=== PATIENT | female | born 1975 | race Caucasian/White ===

== ENCOUNTER 2019-08-23 12:36 | Outpatient (CLI) | payer OTHER, SELFPAY ==
--- NOTE | ~2019-08-23 | MR_ITS ---
EXAMINATION: MR brain IAC wo/w con EXAM DATE: 08/23/2019 14:12 INDICATION: Blurred vision, headache. Pulsatile tinnitus. TECHNIQUE: Multi-sequential, multiplanar MR images of the brain, brainstem, internal auditory canals were obtained without contrast. Whole brain sagittal T1, axial diffusion, gradient echo (T2*), T1, T 2, FLAIR sequences obtained. High resolution coronal 3-D FIESTA, coronal T1 FSE, axial T1 FSPGR of t he internal auditory canals. Patient was then injected with 20 cc Multihance contrast intravenously. Postcontrast axial and coronal T1 weighted whole brain, axial and coronal high resolution T1 IAC seq uences obtained. There is no prior study for comparison. FINDINGS: No evidence of mastoid or middle ear opacification. The 7th/8th cranial nerve complexes a re symmetric, normal in course and caliber. No cerebellopontine angle masses. Posterior fossa unrem arkable. Internal carotid arteries have a normal course. There are small mucous retention cysts in the maxillary sinuses. There are no areas of restricted dif fusion to suggest acute infarction. There is no acute hemorrhage seen on the T2*, a hemosiderin sens itive sequence. No intraparenchymal brain mass. The ventricles are normal in size. There are no ext ra-axial collections. Flow voids are seen in the cerebral arteries on the T2-weighted sequences cons istent with their expected patency. The orbits are unremarkable. Soft tissue is unremarkable. The re are no areas of abnormal enhancement on the postcontrast images. IMPRESSION: 1. Unremarkable brain/IAC examination. Reviewed, dictated and finalized at location A.
[2019-08-23 13:20] LABS: Estimated Glomerular Filt Rate > 60
== END 2019-08-23 12:37 | disposition home or self-care (01) ==
PROVIDERS: PCP Physician Assistant; Visit Provider Otolaryngology
DX: H93.A3 Pulsatile tinnitus, bilateral (principal); H69.82 Other specified disorders of Eustachian tube, left ear
CPT/HCPCS: 36415; 70553; A9577

== ENCOUNTER 2021-01-01 10:04 | Outpatient (CLI) | payer OTHER, SELFPAY ==
--- NOTE | 2021-01-01 | ECG_ITS ---
Measurements Intervals [place] Rate: 80 P: 22 WI: 132 QRS: 43 QRSD: 88 T: 34 QT: 351 QTc: 405 Interpretive Statements SINUS RHYTHM NORMAL ECG Electronically Signed On 01-01-2021 10:55:19 CDT by Neal Winn D.O.
== END 2021-01-01 10:05 | disposition home or self-care (01) ==
PROVIDERS: PCP Family Medicine; Visit Provider Obstetrics & Gynecology
DX: R07.89 Other chest pain (principal)
CPT/HCPCS: 93005

== ENCOUNTER 2021-01-07 15:14 | Outpatient (CLI) | payer OTHER, SELFPAY ==
--- NOTE | ~2021-01-07 | MM_ITS ---
EXAMINATION: MM screening concepcion BI w duncan HISTORY: Screening mammogram TECHNIQUE: Craniocaudal and mediolateral oblique 3-D tomosynthesis images were obtained and synthetic 2-D images were generated. CAD analysis was submitted and interpreted. COMPARISON: No prior mammogram is available for comparison at this institution. BREAST PARENCHYMAL COMPOSITION: There are scattered areas of fibroglandular density. FINDINGS: There is no evidence of suspicious mass, calcification, or architectural distortion to sugg est malignancy in either breast. IMPRESSION: 1. No mammographic evidence of malignancy. 2. Recommend routine screening mammography in one year. BI-RADS Category 1: Negative Reviewed, dictated and finalized at location A.
== END 2021-01-07 15:15 | disposition home or self-care (01) ==
LOC: ANHIMG 15:16
PROVIDERS: PCP Family Medicine; Visit Provider Obstetrics & Gynecology
DX: Z12.31 Encounter for screening mammogram for malignant neoplasm of breast (principal)
CPT/HCPCS: 77063; 77067

== ENCOUNTER 2021-04-02 16:06 | Outpatient (CLI) | payer OTHER, SELFPAY ==
--- NOTE | ~2021-04-02 | XR_ITS ---
XR abdomen/kub 1V 04/02/2021 16:30 INDICATION: Renal stone TECHNIQUE: KUB COMPARISON: None FINDINGS: Bowel gas pattern is normal. There is no evidence of free air, mass, organomegaly, ascites or obstruction. No abnormal calculi are seen. The bones appear intact. IMPRESSION: 1: No acute abdominal abnormality identified. Reviewed, dictated and finalized at location A. ANALYST
== END 2021-04-02 16:07 | disposition home or self-care (01) ==
LOC: ANHIMG 16:13
PROVIDERS: PCP Family Medicine; Visit Provider Urology
DX: N20.0 Calculus of kidney (principal)
CPT/HCPCS: 74018

== ENCOUNTER 2022-03-24 15:48 | Emergency (ER) | payer OTHER, SELFPAY ==
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
[2022-03-24 15:53] VITALS: BP 141/80; PULSE 93; RESP 18; TEMP 36.8; O2SAT 100
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
--- NOTE | 2022-03-24 16:49 | PC.NURSE ---
Patient in radiology
[2022-03-24] MEDS: TETANUS,DIPHTHERIA,AC PERTUSSIS ADULT (0.5 ML) BOOSTRIX IM (17:02)
[2022-03-24] MEDS: HYDROcodone/acetaminophen (*CRX) 5-325 MG TABLET 1 TAB PO (17:02)
[2022-03-24 17:32] VITALS: TEMP 36.8
[2022-03-24 18:35] VITALS: BP 143/82; PULSE 82; RESP 18; O2SAT 98
== END 2022-03-24 18:37 | disposition home or self-care (01) ==
LOC: ANHED 18:14
PROVIDERS: Emergency Provider Emergency Medicine; PCP Family Medicine
DX: S02.2XXA Fracture of nasal bones, initial encounter for closed fracture (principal); S01.112A Laceration without foreign body of left eyelid and periocular area, initial encounter; Z23 Encounter for immunization; I10 Essential (primary) hypertension; E78.2 Mixed hyperlipidemia; E66.01 Morbid (severe) obesity due to excess calories; Z68.41 Body mass index [BMI] 40.0-44.9, adult; F41.9 Anxiety disorder, unspecified; F32.A Depression, unspecified; Z87.442 Personal history of urinary calculi; V49.40XA Driver injured in collision with unspecified motor vehicles in traffic accident, initial encounter
CPT/HCPCS: 12011; 70450; 70486; 71045; 72125; 90471; 90715; 99284; A9270

== ENCOUNTER 2022-04-06 13:45 | Outpatient (CLI) | payer OTHER, SELFPAY ==
--- NOTE | ~2022-04-06 | XR_ITS ---
AP and lateral views of the left tibia/fibula Clinical History: Injury Findings: No acute fracture or dislocation is seen. Osseous alignment is anatomic. Joint spaces are p reserved without significant erosive or degenerative change. Soft tissues are unremarkable. Impression: Unremarkable left tib-fib radiographs. Reviewed, dictated and finalized at [facility]. TENANCE TRAINER Impression: Unremarkable left tib-fib radiographs.
== END 2022-04-06 13:46 | disposition home or self-care (01) ==
LOC: ANHIMG 13:49
PROVIDERS: PCP Emergency Medicine; Visit Provider Emergency Medicine
DX: M79.662 Pain in left lower leg (principal)
CPT/HCPCS: 73590

== ENCOUNTER 2022-04-27 07:57 | Outpatient (CLI) | payer OTHER, SELFPAY ==
[2022-04-27 08:15] LABS: Basophils Absolute Auto 0.1 K/mm3 (0.0-0.1); Basophils Percent Auto 0.6 % (0.2-1.2); Eosinophils Absolute Auto 0.2 K/mm3 (0-0.3); Hematocrit 43.7 % (37.0-47.0); Hemoglobin 14.3 g/dL (12.0-15.0); Immature Granulocyte Absolute 0.02 K/mm3 (0.00-0.031); Immature Granulocyte Percent A 0.2 % (0-0.5); Lymphocytes Absolute Auto 2.97 K/mm3 (0.9-3.2); Lymphocytes Percent Auto 34.5 % (18.3-44.2); Mean Corpuscular HGB Conc 32.7 g/dl (32-36); Mean Corpuscular Hemoglobin 29.9 pg (26-34); Mean Corpuscular Volume 91.4 fl (80-100); Mean Platelet Volume 9.2 fl (7.4-10.4); Monocytes Absolute Auto 0.6 K/mm3 (0.1-0.6); Monocytes Percent Auto 6.4 % (2.6-8.5); Neutrophils Absolute Auto 4.8 K/mm3 (1.3-6.7); Neutrophils Percent Auto 56.3 % (45.5-73.1); Platelet Count Result 281 k/mm3 (150-375); Red Blood Count 4.78 M/mm3 (4.2-5.4); Red Cell Distribution Width 13.6 % (11.5-14.5); White Blood Count 8.6 K/mm3 (4.5-10.0)
[2022-04-27 08:26] LABS: Alanine Aminotransferase 37 U/L (6-35); Albumin Level 4.2 g/dL (3.5-5.1); Alkaline Phosphatase 42 U/L (38-126); Anion Gap 4 mmol/L (8-16); Aspartate Amino Transferase 20 U/L (14-36); Bilirubin,Total 0.3 mg/dL (0.2-1.3); Blood Urea Nitrogen 14 mg/dL (7-17); Calcium 8.3 mg/dL (8.4-10.2); Carbon Dioxide 30 mmol/L (22-30); Chloride 101 mmol/L (98-107); Cholesterol 207 mg/dL (0-200); Estimated Glomerular Filt Rate > 60; Glucose 105 mg/dL (65-110); HDL Direct 46 mg/dL; Potassium 4.1 mmol/L (3.4-5.0); Sodium 135 mmol/L (137-145); Triglycerides 116 mg/dL (<150)
[2022-04-27 08:37] LABS: LDL Cholesterol Direct 120 mg/dL
[2022-04-27 08:40] LABS: Hemoglobin A1C 5.4 % (<5.7)
== END 2022-04-27 07:58 | disposition home or self-care (01) ==
LOC: ANHLAB 07:59
PROVIDERS: PCP Emergency Medicine; Visit Provider Emergency Medicine
DX: Z00.00 Encounter for general adult medical examination without abnormal findings (principal); E66.01 Morbid (severe) obesity due to excess calories; Z68.41 Body mass index [BMI] 40.0-44.9, adult; Z13.220 Encounter for screening for lipoid disorders; Z13.1 Encounter for screening for diabetes mellitus
CPT/HCPCS: 36415; 80053; 80061; 83036; 85025

== ENCOUNTER 2024-07-10 00:39 | Day surgery (SDC) | payer OTHER, SELFPAY ==
[2024-07-06 14:55] VITALS: BMI 38.3
--- OUTSIDE RECORDS SUMMARY | 2024-07-10 00:45 | XMS_ITS | Referral Summary ---
Author Organization [facility] [place] [address] Address [address] [place] [address] Care Team Providers Care Supply Chain Project Manager Name Role Phone Boyd El MD Primary Care Provider [phone] Allergies Active Allergy Reactions Criticality Noted Date Comments Cephalexin Itching Low 10/10/2019 Other Diarrhea Low 03/05/[address] (CYMBALTA) 30 mg capsule duloxetine 30 mg capsule,delayed release Active ibuprofen (ADVIL,MOTRIN) 800 mg tablet 2 Active methocarbamoL (ROBAXIN) 750 mg tablet 2 Active sertraline (ZOLOFT) 100 mg tablet sertraline 100 mg tablet TAKE 1 AND 1/2 TABLETS DAILY 0 Active tiZANidine (ZANAFLEX) 4 mg tablet tizanidine 4 mg tablet TAKE 1 TABLET EVERY 6 HOURS NEEDED Active acetaZOLAMIDE (DIAMOX) 250 mg tablet Take 250 mg by mouth as needed Active Active Problems Problem Noted Date Diagnosed Date Sinusitis 05/18/2022 Abnormal blood chemistry level 05/18/2022 Abdominal pain 05/18/2022 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 The ONHs appears heaped but there is no edema. Full color vision, full Lowe visual field (HVF), full EOMs, no evidence of optic disc drusen on photos with AF. Educated on findings. Educated from eye exam there is no indication for Diamox at this time. Recommended close monitoring in 6-8wk with neuro-oph, sooner with any new/worsening of symptoms. Pulsatile tinnitus of right ear 05/05/2022 Immunizations Immunization Administration Dates Next Due [facility] ([facility]) SARS-CoV-2 Vaccination 07/18/2020 Social History Tobacco Use Types Packs/Day Years Used Date Smoking Tobacco: Every Day Cigarettes Tobacco Cessation:Ready to Q uit: Not Asked; Counseling Given: Not Answered Comments Unknown Sex and Gender Information Value Date Recorded Sex Assigned at Not on file Legal Sex Female 10:44 AM CDT Gender Identity Not on file Sexual Orientation Not on file Plan of Treatment Not on file Insurance [facility] [id number] [facility] [employer] SIG [id number] [facility] Care Teams Supply Chain Project Manager Relationship Specialty Start Date End Date Boyd El MD PCP - General Family Medicine 05/05/22
--- OUTSIDE RECORDS SUMMARY | 2024-07-10 00:45 | XMS_ITS | Clinical Summary ---
Author Organization [facility] [place] [address] Address [address] [place] [address] Care Team Providers Care Seed Sales Manager Name Role Phone Boyd El MD Primary Care Provider [phone] Allergies Active Allergy Reactions Criticality Noted Date [...] 05/18/2022 Assessment & Plan (05/21/2022 1:35 PM LOGISTICS MANAGEMENT SPECIALIST): No evidence of papilledema. The ONHs appears [...] 05/05/2022 Immunizations Immunization Administration Dates Next Due [facility] ([facility]) SARS-CoV-2 Vaccination 07/18/2020 Social History Tobacco Use Types Packs/Day Years Used Date Smoking Tobacco: Every Day Cigarettes Tobacco Cessation:Ready to Q uit: Not Asked; Counseling Given: Not Answered Comments Unknown Sex and Gender Information Value Date Recorded Sex Assigned at Not on file Legal Sex Female 10:44 AM CDT Gender Identity Not on file Sexual Orientation Not on file Obstetrics History Plan of Treatment Health Maintenance Due Date Last Done Comments Breast Cancer Screening-Mammogram 1974 Cervical Cancer Screening 1974 Colon Cancer Screening-Colonoscopy 1974 Depression Screening 1974 Hepatitis C Screening 1974 DTaP/Tdap/Td Vaccine (1 - Tdap) 1985 Hepatitis B Screening 02/27/1992 Regular Well Visit/Exam 18-64 02/27/1992 Pneumococcal vaccine <65 (1 of 2 - PCV) 1993 Covid-19 Vaccine (3 - 2023- season) 12/19/202304/2020, 07/18/2020 Influenza Vaccine (#1) 2023 Zoster Vaccine (1 of 2) 02/27/2024 Insurance [employer]ET[employer] SIG [id number] [facility] A[employer] SIG [id number] [facility] Care Teams Seed Sales Manager Relationship Specialty Start Date End Date Boyd El MD PCP - General Family Medicine 05/05/22
--- OUTSIDE RECORDS SUMMARY | 2024-07-10 00:45 | XMS_ITS | Clinical Summary ---
Author Organization [facility] [employer] Address [address] [address] Care Team Providers Care Ripsaw Operator Name Role Phone Pedro Santos MD Primary Care Provider Source Comments [facility],non-owned Affiliates and Associated Physician Practices is amultiple site organization consisting of ambulatory clinics and hospital sitesin [place], [place], [place] and [place]. This disclosure is being madepursuant to the Care Everywhere program and may not contain all information available regarding this patient. Last updated 18.[facility] [employer] Allergies Active Allergy Reactions Criticality Noted Date Comments Cephalexin Itching 10/10/2019 Medications * Be aware that medications may not be up to date on this document. Alwaysverify current medications with the patient. Medication Sig Dispensed Refills Start Date End Date Status sertraline (ZOLOFT) 100 MG tablet 150 mg 09/14/2019 Active Active Problems No known active problems Social History Tobacco Use Types Packs/Day Years Used Date Smoking Tobacco: Every Day Cigarettes Smokeless Tobacco: Never Alcohol Use Standard Drinks/Week Comments Never 0 (1 standard drink = 0.6 oz pur e alcohol) AUDIT-C Answer Date Recorded Q1: How often do you have a drink containing alc ohol? Never 10/10/2019 Average Number of Drinks Not on file 020 Frequency of Binge Drinking Not on file 09/18 Sex and Gender Information Value Date Recorded Sex Assigned at Not on file Gender Identity Not on file Sexual Orientation Not on file Last Filed Vital Signs Vital Sign Reading Time Taken Comments Blood Pressure 144/91 10/10/2019 1:40 PM CDT Pulse 95 10/10/2019 1:40 PM CDT Temperature 36.3 C (97.4 F) 10/10/2019 1:40 PM CDT Respiratory Rate - - Oxygen Saturation 96% 10/10/2019 1:40 PM CDT Inhaled Oxygen Concentration - - Weight 108.9 kg (240 lb) 10/10/2019 1:40 PM CDT Height 165.1 cm (5' 5 ) 10/10/2019 1:40 PM CDT Body Mass Index 39.94 10/10/2019 1:40 PM CDT Plan of Treatment Health Maintenance Due Date Last Done Comments COLOGUARD (AGES 45-75) - COL ON CA SCREENING 1974 COLON MONITORING 1974 COLONOSCOPY - COLON CA SCREENING 1974 CT COLONOGRAPHY - COLON CA SCREENING 1974 Colorectal Cancer Screening 1974 FIT - COLON CA SCREENING 1974 FLEX SIG - COLON CA SCREENING 1974 LIPID TESTING 1974 MAMMOGRAM 1974 PAP SMEAR 1974 HIV SCREENING 1989 HEPATITIS C SCREENING 02/22/1992 DTAP/TDAP/TD VACCINES (1 - Tdap) 1993 HEPATITIS B VACCINE (1 of 3 - 19+ 3-dose series) 1993 PNEUMOCOCCAL VACCINE 50+ (1 of 2 - PCV) 1993 PNEUMOCOCCAL VACCINE (1 of 2 - PCV) 1993 SCREENING FOR DIABETES 10/10/2019 COVID-19 VACCINE (1 - 2023-2 5 season) 2023 INFLUENZA VACCINE (#1) 2023 ZOSTER VACCINE (1 of 2) 02/27/2024 DEPRESSION SCREENING 04/19/2024 HIB VACCINE Aged Out No longer eligi ble based on patient's age to complete this topic HPV VACCINE Aged Out No longer eligi ble based on patient's age to complete this topic MENINGOCOCCAL (Group B) VACC INE SHARED DECISION-MAKING Aged Out No longer eligibl e based on patient's age to complete this topic MENINGOCOCCAL GROUPS A/C/Y/W VACCINE Aged Out No longer eligible b ased on patient's age to complete this topic Care Teams Ripsaw Operator Relationship Specialty Start Date End Date Pedro Santos MD PCP - General 09/07/19
--- OUTSIDE RECORDS SUMMARY | 2024-07-10 00:45 | XMS_ITS ---
Author Organization [facility] Address [address] [place] [address] Care Team Providers [employer] Name Role Phone Cherise Pascual Unavailable [phone] Allergies No Known Allergies REASON FOR VISIT f/u rx Medications Medication SIG (Take, Route, Frequency, Duration) Notes Start Date End Date Status DULoxetine HCl 60 MG 1 capsule Orally On ce a day for 90 days Active Sertraline HCl 100 MG 2 tablets Oral Onc e a day for 90 days change script to 200 mg daily d/c script 100 mg daily dose Active Social History Tobacco Use: Social History Observation Description Date Details (start date - stop date) Current Smoker NA - NA Sex Assigned At : Social History Observation Description Sex Assigned At Female Tobacco Control (Standard) Question Answer Notes Tobacco use: Current smoker Problems Problem Type SNOMED Code ICD Code Onset Dates Problem Status W/U Status Risk Notes Problem 425260247 Tobacco use (Z72.0) Active confirmed Vital Signs Blood pressure systolic 147 mm Hg 05/01/19 25 Blood pressure diastolic 89 mm Hg 025 Heart Rate 81 /min 05/01/2024 Height 65.00 in 05/01/2024 Weight 235.0 lbs 05/01/2024 BMI 39.1 kg/m2 05/01/2024 Height-cm 165.10 cm 05/01/2024 Weight-kg 106.59 kg 05/01/2024 Encounters Encounter Location Date Provider Diagnosis [facility] [address] [place] [address] 05/01/2024 Cherise Pascual Major depressive disorder, recurrent, mild F33.0 ; Generalized anxiety disorder F41.1 ; Panic disorder [episodic paroxysmal anxiety] without agoraphobia F41.0 ; Primary insomnia F51.01 and Tobacco use Z72.0 Assessments Encounter Date Diagnosis (ICD Code) Assessment Notes Treatment Notes Treatment Clinical Notes Section Notes 05/01/2024 Major depressive disorder, recurrent, mild (ICD-10 - F33.0) Preventing Depression From Coming Back: Care Instructions material was published, Depression Treatment: Care Instructions material was published, Learning About Depression material was published, Seasonal Affective Disorder: Care Instructions material was published 1. Mild recurrent major depression - reported no refill needed Sertraline 200 mg daily Cymbalta 60 mg daily in am - education all medications discuss light box therapy and educated on proper use SSRI/SNRI side effects discussed including but not limited to, gastric upset, nausea, vomiting, diarrhea and/or constipation, weight changes, sexual side effects including loss of libido, increased suicidal thoughts/behavio rs in children and young adults, and serotonin syndrome. educated on all medications, benefits, side effects and risk, and educated on depression, anxiety, and mood d/o and educated on compliance of medications, educated on serotonin syndrome, appointment's, continue therapy discussion with patient about course of treatment and patient instructions. obtain labs 2. Generalized anxiety disorder -Sertraline and Cymbalta Medication Management and Follow-Up - Plan: - Schedule follow-up appointments every 2-3 months to monitor the patient's response to the medication regimen. - Reinforce the importance of avoiding recreational drug use due to potential neurotoxicity and interactions with prescribed medications. 3. Primary insomnia -stable decrease caffeine 4. Panic disorder -therapy- schedule stable 5. Complex posttraumatic stress disorder -therapy Chiquita ANUM 6. refer to Urgent care - PCP discuss schedule for new PCP rt shoulder pain and B/P educated on healthy b/p 120/80 monitor b/p at home refer to PCP, Urgent care/ER heart healthy diet and excise limit salt intake limit soda intake and caffiene increase water 7. Tobacco use Do not smoke. Nicotine and other chemicals in cigarettes and cigars can cause lung damage. Ask your healthcare provider for information if you currently smoke and need help to quit. E-cigarettes or smokeless tobacco still contain nicotine. Talk to your healthcare provider before you use these products. education on decrease to stopping nicotine products and stop smoking hotline given -Quit - Yes [place] Tobacco Quitline Call a Smoking Quitline The [employer] [place]'s Smoking Quitline, (4-485-20Q-QUIT) Smokefree.gov, which connects you with your State's Quitline, (8-180-DAMOIEQ) Veterans Smoking Quitline, (2-583-OLWICSV) 05/01/2024 Generalized anxiety disorder (ICD-10 - F41.1) Generalized Anxiety Disorder: Care Instructions material was published, Learning About Generalized Anxiety Disorder material was published, Learning About Anxiety Disorders material was published 1. Mild recurrent major depression - reported no refill needed Sertraline 200 mg daily Cymbalta 60 mg daily in am - education all medications discuss light box therapy and educated on proper use SSRI/SNRI side effects discussed including but not limited to, gastric upset, nausea, vomiting, diarrhea and/or constipation, weight changes, sexual side effects including loss of libido, increased suicidal thoughts/behavio rs in children and young adults, and serotonin syndrome. educated on all medications, benefits, side effects and risk, and educated on depression, anxiety, and mood d/o and educated on compliance of medications, educated on serotonin syndrome, appointment's, continue therapy discussion with patient about course of treatment and patient instructions. obtain labs 2. Generalized anxiety disorder -Sertraline and Cymbalta Medication Management and Follow-Up - Plan: - Schedule follow-up appointments every 2-3 months to monitor the patient's response to the medication regimen. - Reinforce the importance of avoiding recreational drug use due to potential neurotoxicity and interactions with prescribed medications. 3. Primary insomnia -stable decrease caffeine 4. Panic disorder -therapy- schedule stable 5. Complex posttraumatic stress disorder -therapy Chiquita ANUM 6. refer to Urgent care - PCP discuss schedule for new PCP rt shoulder pain and B/P educated on healthy b/p 120/80 monitor b/p at home refer to PCP, Urgent care/ER heart healthy diet and excise limit salt intake limit soda intake and caffiene increase water 7. Tobacco use Do not smoke. Nicotine and other chemicals in cigarettes and cigars can cause lung damage. Ask your healthcare provider for information if you currently smoke and need help to quit. E-cigarettes or smokeless tobacco still contain nicotine. Talk to your healthcare provider before you use these products. education on decrease to stopping nicotine products and stop smoking hotline given -Quit - Yes [place] Tobacco Quitline Call a Smoking Quitline The [employer] [place]'s Smoking Quitline, (5-613-15G-QUIT) Smokefree.gov, which connects you with your State's Quitline, (0-846-DYYREOW) Veterans Smoking Quitline, (2-268-IKSOMLT) 05/01/2024 Panic disorder [episodic paroxysmal anxiety] without agoraphobia (ICD-10 - F41.0) Panic Attacks: Care Instructions material was published 1. Mild recurrent major depression - reported no refill needed Sertraline 200 mg daily Cymbalta 60 mg daily in am - education all medications discuss light box therapy and educated on proper use SSRI/SNRI side effects discussed including but not limited to, gastric upset, nausea, vomiting, diarrhea and/or constipation, weight changes, sexual side effects including loss of libido, increased suicidal thoughts/behavio rs in children and young adults, and serotonin syndrome. educated on all medications, benefits, side effects and risk, and educated on depression, anxiety, and mood d/o and educated on compliance of medications, educated on serotonin syndrome, appointment's, continue therapy discussion with patient about course of treatment and patient instructions. obtain labs 2. Generalized anxiety disorder -Sertraline and Cymbalta Medication Management and Follow-Up - Plan: - Schedule follow-up appointments every 2-3 months to monitor the patient's response to the medication regimen. - Reinforce the importance of avoiding recreational drug use due to potential neurotoxicity and interactions with prescribed medications. 3. Primary insomnia -stable decrease caffeine 4. Panic disorder -therapy- schedule stable 5. Complex posttraumatic stress disorder -therapy Chiquita ANUM 6. refer to Urgent care - PCP discuss schedule for new PCP rt shoulder pain and B/P educated on healthy b/p 120/80 monitor b/p at home refer to PCP, Urgent care/ER heart healthy diet and excise limit salt intake limit soda intake and caffiene increase water 7. Tobacco use Do not smoke. Nicotine and other chemicals in cigarettes and cigars can cause lung damage. Ask your healthcare provider for information if you currently smoke and need help to quit. E-cigarettes or smokeless tobacco still contain nicotine. Talk to your healthcare provider before you use these products. education on decrease to stopping nicotine products and stop smoking hotline given Quit - Yes [place] Tobacco Quitline Call a Smoking Quitline The National [employer] [place]'s Smoking Quitline, (5-009-95E-QUIT) Smokefree.gov, which connects you with your State's Quitline, (2-727-DEUFTQZ) Veterans Smoking Quitline, (4-075-ENRNGTD) 05/01/2024 Primary insomnia (ICD-10 - F51.01) Insomnia: Care Instructions material was published 1. Mild recurrent major depression - reported no refill needed Sertraline 200 mg daily Cymbalta 60 mg daily in am - education all medications discuss light box therapy and educated on proper use SSRI/SNRI side effects discussed including but not limited to, gastric upset, nausea, vomiting, diarrhea and/or constipation, weight changes, sexual side effects including loss of libido, increased suicidal thoughts/behavio rs in children and young adults, and serotonin syndrome. educated on all medications, benefits, side effects and risk, and educated on depression, anxiety, and mood d/o and educated on compliance of medications, educated on serotonin syndrome, appointment's, continue therapy discussion with patient about course of treatment and patient instructions. obtain labs 2. Generalized anxiety disorder -Sertraline and Cymbalta Medication Management and Follow-Up - Plan: - Schedule follow-up appointments every 2-3 months to monitor the patient's response to the medication regimen. - Reinforce the importance of avoiding recreational drug use due to potential neurotoxicity and interactions with prescribed medications. 3. Primary insomnia -stable decrease caffeine 4. Panic disorder -therapy- schedule stable 5. Complex posttraumatic stress disorder -therapy Chiquita ANUM 6. refer to Urgent care - PCP discuss schedule for new PCP rt shoulder pain and B/P educated on healthy b/p 120/80 monitor b/p at home refer to PCP, Urgent care/ER heart healthy diet and excise limit salt intake limit soda intake and caffiene increase water 7. Tobacco use Do not smoke. Nicotine and other chemicals in cigarettes and cigars can cause lung damage. Ask your healthcare provider for information if you currently smoke and need help to quit. E-cigarettes or smokeless tobacco still contain nicotine. Talk to your healthcare provider before you use these products. education on decrease to stopping nicotine products and stop smoking hotline given -Quit - Yes [place] Tobacco Quitline Call a Smoking Quitline The [employer] [place]'s Smoking Quitline, (9-579-79J-QUIT) Smokefree.gov, which connects you with your State's Quitline, (5-331-UUQKDZI) Veterans Smoking Quitline, (1-545-BECQCPR) 05/01/2024 Tobacco use (ICD-10 - Z72.0) 1. Mild recurrent major depression - reported no refill needed Sertraline 200 mg daily Cymbalta 60 mg daily in am - education all medications discuss light box therapy and educated on proper use SSRI/SNRI side effects discussed including but not limited to, gastric upset, nausea, vomiting, diarrhea and/or constipation, weight changes, sexual side effects including loss of libido, increased suicidal thoughts/behavio rs in children and young adults, and serotonin syndrome. educated on all medications, benefits, side effects and risk, and educated on depression, anxiety, and mood d/o and educated on compliance of medications, educated on serotonin syndrome, appointment's, continue therapy discussion with patient about course of treatment and patient instructions. obtain labs 2. Generalized anxiety disorder -Sertraline and Cymbalta Medication Management and Follow-Up - Plan: - Schedule follow-up appointments every 2-3 months to monitor the patient's response to the medication regimen. - Reinforce the importance of avoiding recreational drug use due to potential neurotoxicity and interactions with prescribed medications. 3. Primary insomnia -stable decrease caffeine 4. Panic disorder -therapy- schedule stable 5. Complex posttraumatic stress disorder -therapy Chiquita ANUM 6. refer to Urgent care - PCP discuss schedule for new PCP rt shoulder pain and B/P educated on healthy b/p 120/80 monitor b/p at home refer to PCP, Urgent care/ER heart healthy diet and excise limit salt intake limit soda intake and caffiene increase water 7. Tobacco use Do not smoke. Nicotine and other chemicals in cigarettes and cigars can cause lung damage. Ask your healthcare provider for information if you currently smoke and need help to quit. E-cigarettes or smokeless tobacco still contain nicotine. Talk to your healthcare provider before you use these products. education on decrease to stopping nicotine products and stop smoking hotline given -Quit - Yes [place] Tobacco Quitline Call a Smoking Quitline The [employer] [place]'s Smoking Quitline, (9-249-20A-QUIT) Smokefree.gov, which connects you with your State's Quitline, (1-313-GBJKTAD) Veterans Smoking Quitline, (3-568-GWJYMZL) Plan Of Treatment Treatment Notes Assessment Notes Major depressive disorder, recurrent, mi ld Preventing Depression From Coming Back: Care Instructions material was published, Depression Treatment: Care Instructions material was published, Learning About Depression material was published, Seasonal Affective Disorder: Care Instructions material was published Generalized anxiety disorder Generalized Anxiety Disorder: Care Instructions material was published, Learning About Generalized Anxiety Disorder material was published, Learning About Anxiety Disorders material was published Panic disorder [episodic par oxysmal anxiety] without agoraphobia Panic Attacks: Care Instructions materia l was published Primary insomnia Insomnia: Care Instr uctions material was published Next Appt Details Follow Up: 3 Months, Reason: medication management Provider Name:Cherise Ankur , 07/24/2024 11:15:00 AM, [facility] [facility] [address], [place], [address], Progress Notes * NICOLAS DUBOSEOB:1975 (49 yo F)Acc No.[id number]:05/01/2024 Patient: CARLOS GARDNER Provider: Chip PASCUAL PMHNP :1975 A ge:49 Y S ex:Female Date:05/01/2024 Address:[facility] Subjective: * Chief Complaints: * 1 . F/u rx. * HPI: H istory of Presenting Problem: Follow up depression, anxiety and panic mild since last visit report I am doing very g ood, I had few weepy days during holidays stress and not sleeping good, average 4 hours lately used to be 8 hours and been waking up 3-4 am then awake for day I have rt shoulder pain after fall last month day and I am side sleeper, I have no PCP right now and I have not got new PCP yet, I have not had any problems with depression or anxiety I feel not sad, down, no hopeless or helpless, puppies 1 year old and like snow, not agitated, been in therapy, doing good on r x no s/e, not feeling anxious, not restless or fidgety, and no panic, concentration and focus good, motivation and interest good and energy good, not isolation, no psychosis no feliz, no SI/HI, denies SI/HI no plans or intent no past attempts no thoughts harm to self or others, I have not talked to parents since 11/09 MRI head beginning 2019 no finding conclusions besides possible htn ETOH none Smoking 1/2 PPD labs none drugs denies Notes:hx limited caffeine r/t hx kidney stones Panic Attacks Occur: o ut of the blue; in crowds Modifying factors: r est; psychotherapy: other; medication adherence: greater than 90%; staying at home Associated Symptoms Panic: p alpitations or tachycardia; f eeling like going crazy; h eadaches Notes:panic- family tension and work stress not taking hormones tx Sleep Problems CPAP: d oes not use CPAP every night. D epression Screening: LISA-7 (2018 Edition) F eeling nervous, anxious, or on edge?Not at all, N ot being able to stop or control worrying N ot at all, W orrying too much about different things N ot at all, T rouble relaxing N ot at all, B eing so restless that it is hard to sit still N ot at all, B ecoming easily annoyed or irritable N ot at all, F eeling afraid as if something awful might happen N ot at all, T otal LISA-7 Score 0 , I nterpretation of Total ( 0 to 4) No Anxiety. C [place]-Suicide Severity Rating Scale: Suicide Risk (CSRS-screener) i n the past one month Have you wished you were or wished you could go to sleep and not wake up? N o, i n the past one month Have you actually had any thoughts of killing yourself? N o. D epression screening: PHQ-9 L ittle interest or pleasure in doing things N ot at all, F eeling down, depressed, or hopeless N ot at all, T rouble falling or staying asleep, or sleeping too much S everal days, F eeling tired or having little energy N ot at all, P oor appetite or overeating N ot at all, F eeling bad about yourself or that you are a failure, or have let yourself or your family down N ot at all, T rouble concentrating on things, such as reading the newspaper or watching television N ot at all, M oving or speaking so slowly that other people could have noticed; or the opposite, being so fidgety or restless that you have been moving around a lot more than usual N ot at all, T houghts that you would be better off or of hurting yourself in some way N ot at all, T otal Score 1 , Interpretation M inimal Depression. I ntervention D epression Screening Findings N egative, S uicide Risk Assessment Performed . * ROS: Mata dyer reports d ry eyes (at times). She reports mild anxiety b ut reports no depression, no sleep disturbances, feeling safe in a relationship, no alcohol abuse, no hallucinations, no suicidal thoughts, no mood swings, no memory loss, no agitation, . She reports no fever, no significant weight gain, and no significant weight loss. She reports no chest pain, no shortness of breath, no palpitations, no known heart murmur, and no ankle swelling. She reports no cough and no shortness of breath. She reports no abdominal pain, no nausea, no vomiting, no constipation, normal appetite, no diarrhea, and no GERD. She reports no incontinence, no difficulty urinating, and no increased frequency. She reports no muscle aches, no muscle weakness, no arthralgias/joint pain, no back pain, no neck pain, and no difficulty walking. She reports no gait dysfunction. She reports fatigue. * Medical History: Mata browne: Complex posttraumatic stress disorder, Generalized anxiety disorder, Mild recurrent major depression, Moderate recurrent major depression, Panic disorder, Primary insomnia, Tobacco dependence syndrome, ,. * Social History: T obacco Use: T obacco Control (Standard) T obacco use: C urrent smoker. M igrated Social History: M igrated Social History: Alcohol Intake: None 08/01/2020,Tobacco Years: Current every day smoker 08/01/2020. D rug/Alcohol: D o you smoke marijuana?: Denies. Do you drink alcohol?: No. M iscellaneous: A dvance Care Planning A re you your own decision-maker Y es, D o you have Power of Legal Aid for Health or Medical? N o. * Medications: T aking DULoxetine HCl 60 MG Capsule Delayed Release Particles 1 capsule Orally Once a day , Taking Sertraline HCl 100 MG Tablet 2 tablets Oral Once a day , Notes to Pharmacist: change script to 200 mg daily d/c script 100 mg daily dose, Discontinued DULoxetine HCl 60 MG Capsule Delayed Release Particles TAKE 1 CAPSULE BY MOUTH EVERY DAY FOR 90 DAYS , Discontinued Sertraline HCl 100 MG Tablet TAKE 2 TABLETS BY MOUTH EVERY DAY FOR 90 DAYS , Discontinued Sertraline HCl 100 MG Tablet 2 tablets Oral Once a day , Notes to Pharmacist: patient is taking 200 mg daily please fill correct script, Medication List reviewed and reconciled with the patient * Allergies: N .K.D.A. Objective: * Vitals: B P:147/89mm Hg, HR:81/min, Wt:235.0lbs, Wt-k.59 kg, Ht: 65.00 in, Ht-cm: 165.10 cm, BMI:39.1Index, Body Surface Area: 2.21. * Examination: P sychiatry: Appearance: w ell-groomed, well-nourished, appears stated age. Abnormal body movements: n one. Affect / mood: a ppropriate, full range. Aggression: l ow. Anger control: g ood. Attention: g ood. Attitude: c ooperative. Homicidal ideation: n one. Suicidal ideation: n one. Memory status: n o impairment noted. Degree of awareness of surroundings: w ithin normal limits.? Delusions: n o. Hallucinations: n o. Impulse control: g ood. Insight: g ood. Intellectual functioning: a verage. Comprehension - Intellectual function: a verage. Judgement: g ood. Orientation: a wake, alert and oriented x 3. Perceptual disorders: n o perceptual disorder noted. Psychomotor activity: w ithin normal range. Sexual impulse control: g ood. Speech / language: a ppropriate pitch/modulation, clear and coherent, normal rate, volume, and articulation (RVR), proper grammar used. Thought content: a ppropriate. Thought process: i ntact. Assessment: * Assessment: 1. M ajor depressive disorder, recurrent, mild - F33.0 (Primary) 2 . G eneralized anxiety disorder - F41.1 3 . P anic disorder [episodic paroxysmal anxiety] without agoraphobia - F41.0 S pecify :Src Diagnosis Name: Panic disorder [episodic paroxysmal anxiety] 4 . P rimary insomnia - F51.01 5 . T obacco use - Z72.0? 1. Mild recurrent major depr ession - reported no refill needed Sertraline 200 mg daily Cymbalta 60 mg daily in am - education all medications discuss light box therapy and educated on proper use SSRI/SNRI side effects discussed including but not limited to, gastric upset, nausea, vomiting, diarrhea and/or constipation, weight changes, sexual side effects including loss of libido, increased suicidal thoughts/behaviors in children and young adults, and serotonin syndrome. educated on all medications, benefits, side effects and risk, and educated on depression, anxiety, and mood d/o and educated on compliance of medications, educated on serotonin syndrome, appointment's, continue therapy discussion with patient about course of treatment and patient instructions. obtain labs 2. Generalized anxiety disorder -Sertraline and Cymbalta Medication Management and Follow-Up - Plan: - Schedule follow-up appointments every 2-3 months to monitor the patient's response to the medication regimen. - Reinforce the importance of avoiding recreational drug use due to potential neurotoxicity and interactions with prescribed medications. 3. Primary insomnia -stable decrease caffeine 4. Panic disorder -therapy- schedule stable 5. Complex posttraumatic stress disorder -therapy Chiquita ANUM 6. refer to Urgent care - PCP discuss schedule for new PCP rt shoulder pain and B/P educated on healthy b/p 120/80 monitor b/p at home refer to PCP, Urgent care/ER heart healthy diet and excise limit salt intake limit soda intake and caffiene increase water 7. Tobacco use Do not smoke. Nicotine and other chemicals in cigarettes and cigars can cause lung damage. Ask your healthcare provider for information if you currently smoke and need help to quit. E-cigarettes or smokeless tobacco still contain nicotine. Talk to your healthcare provider before you use these products. education on decrease to stopping nicotine products and stop smoking hotline given -Quit - Yes [place] Tobacco Quitline Call a Smoking Quitline The [employer] [place]'s Smoking Quitline, (7-761-17U-QUIT) Smokefree.gov, which connects you with your [facility]'s Quitline, (3-209-VHNNLET) [facility] Smoking Quitline, (2-666-JWPKYHN) Plan: * Treatment: 2. G eneralized anxiety disorder Notes: Generalized Anxiety Disorder: Care Instructions material was published, Learning About Generalized Anxiety Disorder material was published, Learning About Anxiety Disorders material was published 3. 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 P rimary insomnia Notes: Insomnia: Care Instructions material was published * Procedure Codes: G 9902 Pt scrn tbco and id as user, 40260 BEHAV ASSMT W/SCORE & DOCD/STAND INSTRUMENT, G2211 VISIT COMPLEXITY INHERENT TO ONGOING CARE RELATED TO A PATIENT'S SINGLE, SERIOUS CONDITION OR A COMPLEX CONDITION * Preventive Medicine: Counseling: B P Management: F IRST HYPERTENSIVE BP READING FOLLOW-UP PLAN: F ollow-up 1 month Follow up with your PCPVladimir RECOMMENDATION: Vladimir mendez education, REFERRAL TO ALTERNATIVE / PRIMARY CARE PROVIDER: R koffial to general medical service Recommended Nonpharmacologic Interventions (Lifestyle Modifications) - Weight ReductionA heart-healthy diet , such as Dietary Approaches to Stop Hypertension (DASH) Eating PlanDietary Sodium RestrictionIncreased Physical ActivityModeration in alcohol consumption, W EIGHT REDUCTION RECOMMENDATION: educated on healthy b/p 120/80monitor b/p at homerefer to PCP, Urgent care/ERheart healthy diet and exciselimit salt intakelimit soda intake and caffieneincrease water. C ommunication to patient: Natalia prince the Patient on tobacco use; cessation provided 0 05/01/2024 Do not smoke. Nicotine and other chemicals in cigarettes and cigars can cause lung damage. Ask your healthcare provider for information if you currently smoke and need help to quit. E-cigarettes or smokeless tobacco still contain nicotine. Talk to your healthcare provider before you use these products.education on decrease to stopping nicotine products and stop smoking hotline gtxur9-142-Qaat - Yes [place] Tobacco QuitlineCall a Smoking QuitlineThe National Cancer [place]'s Smoking Quitline, (8-338-99Z-QUIT)Smokefree.gov, which connects you with your State's Quitline, (3-862-GCPDSBH)[facility] Smoking Quitline, (5-571-WMWRRTE). S moking Cessation counseling done Discuss the importance of quitting smoking, Smoking Cessation counseling done Discuss the importance of quitting smoking,. * Follow Up: 3 Months (Reason: medication management) * Billing Information: * Visit Code: 15628 OFFICE OUTPATIENT VISIT 25 MINUTES DETAILED HISTORY AND EXAM/MODERATE MEDICAL DECISION MAKING. * Procedure Codes: G9902 Pt scrn tbco and id as user. 78765 BEHAV ASSMT W/SCORE & DOCD/STAND INSTRUMENT. G2211 VISIT COMPLEXITY INHERENT TO ONGOING CARE RELATED TO A PATIENT'S SINGLE, SERIOUS CONDITION OR A COMPLEX CONDITION. * LITIES MECHANICAL DESIGN ENGINEER Sign off status: Completed true * Provider: LEONOR REED Date: 0 05/01/2024 Generated for Aba claros/Chuck/Yolaitting on: 0 07/10/2024 12:45 AM CDT History and Physical Notes * HPI (History of Present Illness) Category Sub-Category Detail Notes Category Not es History of Presenting Problem Follow up depression, anxiety and panic mild since last visit report I am doing very good, I had few weepy days during holidays stress and not sleeping good, average 4 hours lately used to be 8 hours and been waking up 3-4 am then awake for day I have rt shoulder pain after fall last month day and I am side sleeper, I have no PCP right now and I have not got new PCP yet, I have not had any problems with depression or anxiety I feel not sad, down, no hopeless or helpless, puppies 1 year old and like snow, not agitated, been in therapy, doing good on rx no s/e, not feeling anxious, not restless or fidgety, and no panic, concentration and focus good, motivation and interest good and energy good, not isolation, no psychosis no feliz, no SI/HI, denies SI/HI no plans or intent no past attempts no thoughts harm to self or others, I have not talked to parents since 11/09 MRI head beginning 2019 no finding conclusions besides possible htn ETOH none Smoking 1/2 PPD labs none drugs denies Notes:hx limited caffeine r/t hx kidney stones Panic Attacks Occur: out of the blue; in crowds Modifying factors: rest; psychotherapy: other; medication adherence: greater than 90%; staying at home Associated Symptoms Panic: palpitations or tachycardia; feeling like going crazy; headaches Notes:panic- family tension and work stress not taking hormones tx Sleep Problems CPAP: does not use CPAP every night Depression screening PHQ-9 Little interest or pleasure in doing things: Not at all Feeling down, depressed, or hopeless: No t at all Trouble falling or staying asleep, or sl eeping too much: Several days Feeling tired or having little energy: N ot at all Poor appetite or overeating: Not at all Feeling bad about yourself o r that you are a failure, or have let yourself or your family down: Not at all Trouble concentrating on thi ngs, such as reading the newspaper or watching television: Not at all Moving or speaking so slowly that other people could have noticed; or the opposite, being so fidgety or restless that you have been moving around a lot more than usual: Not at all Thoughts that you would be b tesha off or of hurting yourself in some way: Not at all Total Score: 1 Interpretation: Minimal Depression Intervention Depression Screening Findings: N egative Suicide Risk Assessment Performed: ____ Depression Screening LISA-7 (2018 Edition) Feelin g nervous, anxious, or on edge: Not at all Not being able to stop or control worryi ng: Not at all Worrying too much about different things : Not at all Trouble relaxing: Not at all Being so restless that it is hard to sit still: Not at all Becoming easily annoyed or irritable: No t at all Feeling afraid as if something awful cristofer ht happen: Not at all Total LISA-7 Score: 0 Interpretation of Total: (0 to 4) No Anx iety [place]-Suicide Severity Rating Scale Suicide Risk (CSRS-screener) in the past one month Have you wished you were or wished you could go to sleep and not wake up?: No in the past one month Have y ou actually had any thoughts of killing yourself?: No Examination Category Sub-Category Detail Notes Category Not es Psychiatry Appearance: well-groomed, we ll-nourished, appears stated age Attitude: cooperative Psychomotor activity: within normal rang e Abnormal body movements: none Attention: good Degree of awareness of surroundings: wit hin normal limits Orientation: awake, alert and darrius ented x 3 Affect / mood: appropriate, full ra nge Speech / language: appropriate pitch/mo dulation, clear and coherent, normal rate, volume, and articulation (RVR), proper grammar used Insight: good Judgement: good Thought process: intact Thought content: appropriate Perceptual disorders: no perceptual diso rder noted Aggression: low Anger control: good Suicidal ideation: none Homicidal ideation: none Intellectual functioning: average Impulse control: good Sexual impulse control: good Memory status: no impairment noted Delusions: no Hallucinations: no Comprehension - Intellectual function: a verage
--- OUTSIDE RECORDS SUMMARY | 2024-07-10 00:45 | XMS_ITS ---
Author Organization [facility] [employer] Address [facility] [facility] [address] [facility] [address] [place] [address] Care Team Providers Care Resin Filterer Name Role Phone Cherise Pascual Unavailable [phone] REASON FOR VISIT Cherise Pascual appt Social History Sex Assigned At : Social History Observation Description Sex Assigned At Female Encounters Encounter Location Date Provider Diagnosis [facility] [employer] [place] [id number] [facility] [address] [facility] [address] [place] [address] 03/14/2024 Cherise Ankur Plan Of Treatment Next Appt Details Provider Name:Cherise Pascual , 07/24/2024 11:15:00 AM, [address], [facility] [address], [place], [address], Progress Notes * NICOLAS DUBOSEOB:1975 (49 yo F)Acc No.[id number]:03/14/2024 Patient: CARLOS GARDNER :1975 A ge:49 Y S ex:Female Address:[facility] [place], [address] * true * Date: Generated for Printi ng/Faxing/eTransmitting on: 0 07/10/2024 12:45 AM CDT
--- OUTSIDE RECORDS SUMMARY | 2024-07-10 00:46 | XMS_ITS ---
Author Organization [facility] [employer] Address [address] [facility] [address] [address] Care Team Providers Care Precinct Commanding Officer Name Role Phone Cherise Pascual Unavailable [phone] REASON FOR VISIT New Refill Request Medications Medication SIG (Take, Route, Frequency, Duration) Notes Start Date End Date Status Sertraline HCl 100 MG 2 tablets Oral Onc e a day for 90 days patient is taking 200 mg daily please fill correct script 03/14/2024 Active Social History Sex Assigned At : Social History Observation Description Sex Assigned At Female Encounters Encounter Location Date Provider Diagnosis [facility] [employer] [address] [address] 03/14/2024 Cherise Ankur Major depressive disorder, recurrent, mild F33.0 Assessments Encounter Date Diagnosis (ICD Code) Assessment Notes Treatment Notes Treatment Clinical Notes Section Notes 03/14/2024 Major depressive disorder, recurrent, mild (ICD-10 - F33.0) Plan Of Treatment Medication Medication Name Sig Start Date Stop Date Notes Sertraline HCl 100 MG 2 tablets Oral Onc e a day for 90 days 03/14/2024 patient is taking 20 0 mg daily please fill correct script Next Appt Details Provider Name:Cherise Ankur , 07/24/2024 11:15:00 AM, [address] [facility] [address], [facility] [address], [address], Progress Notes * NICOLAS DUBOSEOB:1975 (49 yo F)Acc No.[id number]:03/14/2024 Patient: Larry CARLOS AARON :1975 A ge:49 Y S ex:Female Address:Count [address] the [facility] [place], [address] * Refills Start Sertraline HCl Tablet, 100 MG, Oral, 180 Tablet, 2 tablets, Once a day, 90 days, Refills=0 Subjective: * Chief Complaints: * N ew Refill Request * Medical History: * Surgical History: * Hospitalization/Major Diagno stic Procedure: * Medications: Objective: * Vitals: * Physical Examination: Assessment: * Assessment: 1. M ajor depressive disorder, recurrent, mild - F33.0 (Primary) Plan: * Treatment: * Procedure Codes: * true * Date: Generated for Aba claros/Chuck/Angelicsmitting on: 0 07/10/2024 12:45 AM CDT
[2024-07-10] MEDS: LACTATED RINGERS 1,000 ML 150 ML IV CONT (09:39)
--- NOTE | 2024-07-10 09:53 | P.PNAN_ITS ---
Anes - Initial Pre Proc Eval Procedure: Operation Date: 07/10/24 10:30 Proposed Procedures p Colonoscopy - Atif Troy MD Date/Time: 07/10/24 09:53 Surgeon: Atif Troy MD Pre Op Diagnosis: Hx of diverticulosis Patient Data Age: 49 Gender: F Height: 1.65 m Weight: 104.7 kg Allergies Allergy/AdvReac Type Severity Reaction Status Date / Time cephalexin AdvReac Severe Diarrhea Verified 07/10/24 09:34 Home Medications ?Medication ?Instructions ?Recorded ?Confirmed ?Type sertraline 100 mg tablet 100 mg PO DAILY 08/17/22 07/10/24 History duloxetine 60 mg capsule,delayed 60 mg PO DAILY 07/06/24 07/10/24 History release Patient hx anesthesia problems: none Family hx anesthesia problems: none Results Review: All pre-operative results and documents have been reviewed as part of the pre- operative evaluation. [facility] Past Medical History Medical History History of eustachian tube dysfunction Primary hypertension Colon cancer screening History of kidney stones Tobacco abuse Chronic depression Chronic anxiety Mixed hyperlipidemia Pulsatile tinnitus of both ears Morbid obesity with BMI of 40.0-44.9, adult Pulsatile tinnitus Anxiety History of kidney stones Depression Surgical History Surgical History Hx of section 2002 Family History Family History Mother Hypertension Colonic disease Father Heart disease Diabetes mellitus Hx of lung disease Grandparent Diabetes mellitus Brain aneurysm Grandparent Hypertension Cerebrovascular accident Grandparent Acute myocardial infarction Social History Social History Social History: Caffeine- 1-2 cups daily Years smoked: 25 Smoking status: Current every day smoker Tobacco type: cigarettes Alcohol intake: never Substance use: never Substance use type: does not use Lack of Transportation: No Lack of Food: Never True Current Housing: I Have Housing Concerned About Future Housing: No Difficulty Paying Gas/Electric Bills: No Difficulty Paying for Meds: No Currently Unemployed: No Education: Associate Degree Difficulty w/ Childcare or Family Care: No Living arrangements: with family Spiritual care concerns: No Anes - Eval Final PreProcedure Day of Procedure 07/10/24 09:53 Patient weight: obese Lungs: normal air movement Airway: Mallampati scale class II Neurological: alert and oriented Last oral intake: >/= 8 hours ASA classification: II Emergent: no Anesthetic plan: proceed Anesthesia type and monitoring: general GIVS and standard monitoring Results Review: All pre-operative results and documents have been reviewed as part of the pre- operative evaluation. Pt smokes, 1/2 ppd. Informed Consent: The patient's anesthetic plan and its attendant risks and benefits were discussed with the patient/family/POA. Questions were solicited and answers provided to the satisfaction of the patient/family/POA.
--- NOTE | 2024-07-10 10:13 | PM.HPGS ---
History of Present Illness History of Present Illness Consent: Risks, benefits, and alternatives have been discussed and questions answered. Patient agrees to proceed with procedure. Chief complaint: Hx of diverticulosis Narrative: Dina Mendieta is a 49 year old female with history of diverticulitis Review of Systems Review of Systems: All systems reviewed & are unremarkable except as noted in HPI and below PMFSH Past Medical History Medical History (Updated 07/10/24 @ 10:13 by Atif Troy MD) History of diverticulitis History of eustachian tube dysfunction Primary hypertension Colon cancer screening History of kidney stones Tobacco abuse Chronic depression Chronic anxiety Mixed hyperlipidemia Pulsatile tinnitus of both ears Morbid obesity with BMI of 40.0-44.9, adult Pulsatile tinnitus Anxiety History of kidney stones Depression Surgical History Surgical History Hx of section 2002 Family History Family History Mother Hypertension Colonic disease Father Heart disease Diabetes mellitus Hx of lung disease Grandparent Diabetes mellitus Brain aneurysm Grandparent Hypertension Cerebrovascular accident Grandparent Acute myocardial infarction Social History Social History Social History: Caffeine- 1-2 cups daily Years smoked: 25 Smoking status: Current every day smoker Tobacco type: cigarettes Alcohol intake: never Substance use: never Substance use type: does not use Lack of Transportation: No Lack of Food: Never True Current Housing: I Have Housing Concerned About Future Housing: No Difficulty Paying Gas/Electric Bills: No Difficulty Paying for Meds: No Currently Unemployed: No Education: Associate Degree Difficulty w/ Childcare or Family Care: No Living arrangements: with family Spiritual care concerns: No Meds Home Medications and Allergies Home Medications ?Medication ?Instructions ?Recorded ?Confirmed ?Type sertraline 100 mg tablet 100 mg PO DAILY 08/17/22 07/10/24 History duloxetine 60 mg capsule,delayed 60 mg PO DAILY 07/06/24 07/10/24 History release Allergies Allergy/AdvReac Type Severity Reaction Status Date / Time cephalexin AdvReac Severe Diarrhea Verified 07/10/24 09:34 Exam Const: General: comfortable and no acute distress HENMT: Face/Nose/Sinus: Normal nares present Eyes: General: appearance normal, both eyes and all related structures Neck: Neck: no JVD Resp: Auscultation: clear to auscultation bilaterally Cardio: Rate: regular rate Rhythm: regular rhythm GI: Inspection: non-distended GI Palp: Yes Soft to palpation Skin: General skin exam: normal color Neuro: General: gait normal Speech: normal speech Extrem: General: normal to inspection Psych: Mental Status: mental status grossly normal Assessment and Plan Assessment and plan (1) History of diverticulitis: Code(s): Z87.19 - Personal history of other diseases of the digestive system Status: Acute Assessment and Plan: colonoscopy
[2024-07-10 10:29] VITALS: BP 117/66; PULSE 72; RESP 18; O2SAT 98
[2024-07-10 10:34] VITALS: BP 147/88; PULSE 91; RESP 18; TEMP 36.3; O2SAT 98
[2024-07-10 10:38] LABS: BEDSIDEPREGUCG Negative (Negative)
[2024-07-10 10:40] VITALS: BP 121/73; PULSE 74; RESP 14; O2SAT 98
[2024-07-10 10:55] VITALS: BP 129/65; PULSE 65; RESP 18; O2SAT 98
== END 2024-07-10 11:02 | disposition home or self-care (01) ==
PROVIDERS: PCP Family Medicine; Referring Provider Obstetrics & Gynecology; Visit Provider Internal Medicine Gastroenterology
PROC: 0DJD8ZZ Inspection of Lower Intestinal Tract, Via Natural or Artificial Opening Endoscopic (ICD-10-PCS; CPT 45378; principal; 2024-07-10 10:30)
DX: K57.30 Diverticulosis of large intestine without perforation or abscess without bleeding (principal); D12.3 Benign neoplasm of transverse colon; K64.8 Other hemorrhoids; I10 Essential (primary) hypertension; E78.2 Mixed hyperlipidemia; F32.A Depression, unspecified; F41.9 Anxiety disorder, unspecified; Z98.890 Other specified postprocedural states; F17.210 Nicotine dependence, cigarettes, uncomplicated; E66.9 Obesity, unspecified; Z68.38 Body mass index [BMI] 38.0-38.9, adult; Z87.442 Personal history of urinary calculi; Z87.19 Personal history of other diseases of the digestive system; Z82.49 Family history of ischemic heart disease and other diseases of the circulatory system
CPT/HCPCS: 45385; 88305; J2704; J7120

== ENCOUNTER 2024-08-31 12:31 | Outpatient (CLI) | payer OTHER, SELFPAY ==
--- OUTSIDE RECORDS SUMMARY | 2024-08-31 12:36 | XMS_ITS | Clinical Summary ---
Author Organization [facility] [address] Address [address] [place] [address] Care Team Providers Care Sanding Machine Buffer Name Role Phone Boyd El MD Primary Care Provider [phone] Allergies Active Allergy Reactions Criticality Noted Date [...] 05/18/2022 Assessment & Plan (05/21/2022 1:35 PM POLICE LIEUTENANT PRECINCT): No evidence of papilledema. The ONHs appears [...] - PCV) 1993 Covid-19 Vaccine (3 - season) 12/19/202304/2020, 07/18/2020 Zoster Vaccine (1 of 2) 02/27/2024 Influenza Vaccine (Season Ended) 2024 Insurance [employer] SIG [id number] [facility] [employer] SIG [id number] [facility] Care Teams Sanding Machine Buffer Relationship Specialty Start Date End Date Boyd El MD PCP - General Family Medicine 05/05/22
--- OUTSIDE RECORDS SUMMARY | 2024-08-31 12:36 | XMS_ITS | Clinical Summary ---
Author Organization [facility] [employer] Address [address] [place] [address] Care Team Providers Care Senior Chemical Process Engineer Name Role Phone Pedro Santos MD Primary Care Provider [phone] Source Comments [facility],non-owned Affiliates and Associated Physician Practices is amultiple site organization consisting of ambulatory clinics and hospital sitesin [place], [place], [place] and [place]. This disclosure is being madepursuant to the Care Everywhere program and may not contain all information available regarding this patient. Last updated 18.[facility] [employer] Allergies Active Allergy Reactions Criticality Noted Date Comments Cephalexin Itching 10/10/2019 Medications * Be aware that medications may not be up to date on this document. Alwaysverify current medications with the patient. sertraline (ZOLOFT) 100 MG tablet 150 mg [...] of Binge Drinking Not on file 09/18 Comments Unknown Sex and Gender Information Value Date Recorded Sex Assigned at Not on file Legal Sex Female 8:22 AM CDT Gender Identity Not on file [...] 50+ (1 of 2 - PCV) 1994 SCREENING FOR DIABETES 10/10/2019 COVID-19 VACCINE (1 - 2023-2 5 season) 2023 ZOSTER VACCINE (1 of 2) 02/27/2024 DEPRESSION SCREENING 04/19/2024 INFLUENZA VACCINE (Season Ended) 2024 HIB VACCINE Aged Out No longer eligi [...] on patient's age to complete this topic Insurance [facility] SELF PAY NO INSURANCE Member Subscriber Plan / Payer (Ef fective for All Dates) Name:GayatriShundaphniethong Larry Member ID:Not on file Relation to Subscriber:Not on file Name:CARLOS DUBOSE Subscriber ID:Not on file (Home) Address: [address] [place], [place] [id number] Payer ID:Not on file Group ID:Not on file Type:Self Pay Address: [place], [place] Care Teams Senior Chemical Process Engineer Relationship Specialty Start Date End Date Pedro Santos MD PCP - General 09/07/19
--- OUTSIDE RECORDS SUMMARY | 2024-08-31 12:36 | XMS_ITS | Referral Summary ---
Author Organization [facility] [address] Address [address] [place] [address] Care Team Providers Care Assistant Elementary Teacher Name Role Phone Boyd El MD Primary Care Provider [phone] Allergies Active Allergy Reactions Criticality Noted Date [...] 05/18/2022 Assessment & Plan (05/21/2022 1:35 PM STITCHER HAND): No evidence of papilledema. The ONHs appears [...] 05/05/2022 Immunizations Immunization Administration Dates Next Due [facility] ([facility]) SARS-CoV-2 Vaccination 07/18/2020 Social History Tobacco [...] Plan of Treatment Not on file Insurance [facility] [id number] [facility] AET[employer] SIG [id number] [facility] Care Teams Assistant Elementary Teacher Relationship Specialty Start Date End Date Boyd El MD PCP - General Family Medicine 05/05/22
[2024-08-31 19:21] LABS: Basophils Absolute Auto 0.1 K/mm3 (0.0-0.1); Basophils Percent Auto 0.7 % (0.2-1.2); Eosinophils Absolute Auto 0.1 K/mm3 (0-0.3); Hematocrit 43.9 % (37.0-47.0); Hemoglobin 14.3 g/dL (12.0-15.0); Immature Granulocyte Absolute 0.02 K/mm3 (0.00-0.031); Immature Granulocyte Percent A 0.2 % (0-0.5); Lymphocytes Absolute Auto 2.91 K/mm3 (0.9-3.2); Lymphocytes Percent Auto 30.3 % (18.3-44.2); Mean Corpuscular HGB Conc 32.6 g/dl (32-36); Mean Corpuscular Hemoglobin 29.2 pg (26-34); Mean Corpuscular Volume 89.8 fl (80-100); Mean Platelet Volume 9.1 fl (7.4-10.4); Monocytes Absolute Auto 0.6 K/mm3 (0.1-0.6); Monocytes Percent Auto 6.3 % (2.6-8.5); Neutrophils Absolute Auto 5.9 K/mm3 (1.3-6.7); Neutrophils Percent Auto 61.5 % (45.5-73.1); Platelet Count Result 345 k/mm3 (150-375); Red Blood Count 4.89 M/mm3 (4.2-5.4); Red Cell Distribution Width 13.9 % (11.5-14.5); White Blood Count 9.6 K/mm3 (4.5-10.0)
[2024-08-31 19:37] LABS: Alanine Aminotransferase 26 U/L (6-35); Albumin Level 4.4 g/dL (3.5-5.1); Alkaline Phosphatase 56 U/L (38-126); Anion Gap 8 mmol/L (4-12); Aspartate Amino Transferase 32 U/L (14-36); Bilirubin,Total 0.4 mg/dL (0.2-1.3); Blood Urea Nitrogen 16 mg/dL (7-17); Calcium 8.6 mg/dL (8.4-10.2); Carbon Dioxide 26 mmol/L (22-30); Chloride 104 mmol/L (98-107); Cholesterol 243 mg/dL (0-200); Estimated Glomerular Filt Rate > 60; Glucose 83 mg/dL (65-110); HDL Direct 50 mg/dL; Potassium 4.2 mmol/L (3.4-5.0); Sodium 138 mmol/L (137-145); Triglycerides 107 mg/dL (<150)
[2024-08-31 19:49] LABS: LDL Cholesterol Direct 155 mg/dL
[2024-08-31 19:55] LABS: Thyroid Stimulating Hormone 0.738 uIU/mL (0.465-4.680)
[2024-08-31 21:31] LABS: Hepatitis C Virus Antibody Negative (Negative)
== END 2024-08-31 12:32 | disposition home or self-care (01) ==
LOC: ANHGOSHLAB 12:32
PROVIDERS: PCP Family Medicine; Visit Provider Family Medicine
DX: E78.2 Mixed hyperlipidemia (principal); I10 Essential (primary) hypertension; R53.83 Other fatigue; Z11.59 Encounter for screening for other viral diseases
CPT/HCPCS: 36415; 80053; 80061; 84443; 85025; 86803

== ENCOUNTER 2024-12-16 09:19 | Emergency (ER) | payer OTHER, SELFPAY ==
[2024-12-16 09:35] VITALS: BP 164/77; PULSE 94; RESP 16; TEMP 36.6; O2SAT 100
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
== END 2024-12-16 10:13 | disposition home or self-care (01) ==
PROVIDERS: Emergency Provider Registered Nurse; PCP Family Medicine
DX: R35.0 Frequency of micturition (principal); R39.15 Urgency of urination; F17.210 Nicotine dependence, cigarettes, uncomplicated; E78.2 Mixed hyperlipidemia; E66.01 Morbid (severe) obesity due to excess calories; Z68.37 Body mass index [BMI] 37.0-37.9, adult; F41.9 Anxiety disorder, unspecified; F32.A Depression, unspecified
CPT/HCPCS: 87086; 99213; G0463